=== PATIENT | male | born 1950 | race Caucasian/White ===

== ENCOUNTER → 2024-04-23 | Outpatient (CLI) | payer MEDICARE, OTHER ==
--- NOTE | 2024-05-01 09:05 | MR ---
EXAMINATION TYPE: MR brain wo con DATE OF EXAM: 04/23/2024 COMPARISON: None HISTORY: Dementia, cerebrovascular disease. CONTRAST: Performed utilizing 0 mL intravenous Gadavist gadolinium contrast. TECHNIQUE: Multiplanar, multiecho imaging on a 3.0 Velvet magnet is performed through the brain. Stud y is performed within 24 hours of arrival to the hospital. The craniovertebral junction is normal. The pituitary is normal. Diffusion-weighted imaging is performed. No abnormal hyperintensity is present to suggest an acute i ntracranial infarct or acute ischemic change. There are a few scattered punctate areas of hyperintensity on T2 and Inversion Recovery weighted sequ ences which are non-specific but can be related to chronic white matter microvascular ischemic change s. Ventricles and sulci are prominent for the patient age. This is generalized and not more focal in any specific region. Ventricles may be out of proportion to the sulci. Some mild rounding of the tempora l horns of the lateral ventricles may be present. Consider normal pressure hydrocephalus within the d ifferential. IMPRESSION: 1. Atrophy. Consider normal pressure hydrocephalus. 2. Mild chronic deep white matter ischemic-type changes.
== END | disposition home or self-care (01) ==
LOC: RADMRIMAIN 11:34
PROVIDERS: ATTEND Psychiatry & Neurology Neurology
DX: G91.2 (Idiopathic) normal pressure hydrocephalus (principal); I67.82 Cerebral ischemia
CPT/HCPCS: 70551